=== PATIENT | male | born 1985 | race Caucasian/White ===

== ENCOUNTER 2018-03-31 13:42 | Emergency (ER) | payer MEDICAID ==
[~2018-03-31] VITALS: Ht 188 cm; Wt 90.0 kg
[2018-03-31 13:55] VITALS: BP 139/73
[2018-03-31] MEDS ORDERED: CEPH500C5 PO (14:16)
== END 2018-03-31 14:51 | disposition home or self-care (01) ==
LOC: ER 13:42
DX: L03.114 Cellulitis of left upper limb (principal); F12.90 Cannabis use, unspecified, uncomplicated; F15.90 Other stimulant use, unspecified, uncomplicated; F17.200 Nicotine dependence, unspecified, uncomplicated
CPT/HCPCS: 73120; 99284

== ENCOUNTER 2018-04-03 16:15 | Emergency (ER) | payer MEDICAID ==
[~2018-04-03] VITALS: Ht 188 cm; Wt 88.3 kg
[~2018-04-03 16:15] MED LIST: CEPH500C5 PO
[2018-04-03 16:25] VITALS: BP 137/82
[2018-04-03] MEDS ORDERED: ONDA4TAB6 PO (17:22)
[2018-04-03] MEDS ORDERED: HYDR-3686 PO (17:22)
[2018-04-03] MEDS ORDERED: NICO-687 TD (17:36)
[2018-04-03] MEDS ORDERED: mupirocin 2% ointment 22GM TP STA (17:38)
== END 2018-04-03 17:54 | disposition home or self-care (01) ==
LOC: ER 16:15
DX: F19.10 Other psychoactive substance abuse, uncomplicated (principal); F12.90 Cannabis use, unspecified, uncomplicated; F15.90 Other stimulant use, unspecified, uncomplicated; Z79.899 Other long term (current) drug therapy
CPT/HCPCS: 99283

== ENCOUNTER 2018-04-11 14:04 | Emergency (ER) | payer MEDICAID ==
[~2018-04-11] VITALS: Ht 188 cm; Wt 90.4 kg
[~2018-04-11 14:04] MED LIST changes: +HYDR-3686 PO; +NICO-687 TD; +ONDA4TAB6 PO
[2018-04-11 14:12] VITALS: BP 120/68
--- NOTE | 2018-04-11 14:50 | NUR ---
PT STATES DRANK BEER TODAY, LAST HEROIN 2 DAYS AGO, LAST METH TODAY
[2018-04-11] MEDS ORDERED: TAM75C PO (14:53)
[2018-04-11] MEDS ORDERED: AZIT-63 PO (14:53)
[2018-04-11] MEDS ORDERED: ONDA4TAB12 PO (14:53)
== END 2018-04-11 15:03 | disposition home or self-care (01) ==
LOC: ER 14:05
DX: J40 Bronchitis, not specified as acute or chronic (principal); F12.90 Cannabis use, unspecified, uncomplicated; F15.90 Other stimulant use, unspecified, uncomplicated; F11.90 Opioid use, unspecified, uncomplicated; Z79.2 Long term (current) use of antibiotics; Z79.899 Other long term (current) drug therapy
CPT/HCPCS: 99283

== ENCOUNTER 2018-04-23 20:37 | Emergency (ER) | payer MEDICAID ==
[~2018-04-23] VITALS: Ht 180.3 cm; Wt 122.7 kg
[~2018-04-23 20:37] MED LIST changes: +AZIT-63 PO; -HYDR-3686 PO; -NICO-687 TD; +ONDA4TAB12 PO; +PANT-47 PO
[2018-04-23] MEDS ORDERED: bacitracin 15gm ointment TP ONE (21:30)
[2018-04-23] MEDS ORDERED: ondansetron 4mg rapidly disintigrating tab PO ONE (21:30)
[2018-04-23] MEDS ORDERED: amox tr/potassium clavulanate 875/125mg TAB PO ONE (21:30)
[2018-04-23] MEDS ORDERED: TETanus/Pertussis (Acell)/Diphther VAC/PF (Tdap-Adult) 0.5ml syringe IM ONE (21:30)
--- NOTE | 2018-04-23 22:19 | NUR ---
PATIENT IN [facility], HERE FOR MEDICAL CLEARANCE POST DOG BITE TO RIGHT LOWER ANTERIOR LEX2 CM IRRIGATED WITH 1 L NS AND BETADINE. SUTURING NOW: DR WALTERS PATIENT ADMITS TO SMOKING METH AND [place] JOHNSON
[2018-04-23] MEDS ORDERED: acetaminophen 325mg tablet PO ONE (22:40)
[2018-04-23] MEDS ORDERED: AMOX-580 PO (22:47)
[2018-04-23 23:25] VITALS: BP 137/79
== END 2018-04-23 23:48 ==
LOC: ER 20:40
DX: S81.811A Laceration without foreign body, right lower leg, initial encounter (principal); F12.90 Cannabis use, unspecified, uncomplicated; F15.90 Other stimulant use, unspecified, uncomplicated; F11.90 Opioid use, unspecified, uncomplicated; W54.0XXA Bitten by dog, initial encounter; Y93.89 Activity, other specified; Y92.89 Other specified places as the place of occurrence of the external cause; Y99.8 Other external cause status
CPT/HCPCS: 12002; 73590; 90471; 90715; 99284

== ENCOUNTER 2019-06-02 21:26 | Emergency (ER) | payer MEDICAID ==
[~2019-06-02] VITALS: Ht 188 cm; Wt 90.9 kg
[~2019-06-02 21:26] MED LIST changes: -AZIT-63 PO; -CEPH500C5 PO
[2019-06-02 21:38] VITALS: BP 136/85
[2019-06-03] MEDS ORDERED: GUAI1TBM19 PO (00:04)
[2019-06-03] MEDS ORDERED: METH4TAB3 PO (00:04)
[2019-06-03] MEDS ORDERED: AMOX-115 PO (00:04)
== END 2019-06-03 00:14 | disposition home or self-care (01) ==
LOC: ER 21:26
DX: J32.9 Chronic sinusitis, unspecified (principal); F12.90 Cannabis use, unspecified, uncomplicated; F15.90 Other stimulant use, unspecified, uncomplicated; F11.90 Opioid use, unspecified, uncomplicated; Z72.89 Other problems related to lifestyle; Z79.899 Other long term (current) drug therapy
CPT/HCPCS: 99283

== ENCOUNTER 2024-08-06 13:20 | Inpatient (IN) | payer MEDICAID ==
[~2024-08-06] VITALS: Ht 188 cm; Wt 97.7 kg
[~2024-08-06 13:20] MED LIST changes: +GUAI1TBM19 PO; +METH4TAB3 PO; +ONDA-243 PO; -ONDA4TAB12 PO
[2024-08-06 14:27] LABS: BASOPHILS % (AUTO) 0.3 % (0-1); EOSINOPHILS # (AUTO) 0.3 X10'3 (0-0.9); HEMATOCRIT 37.3 % (42.0-52.0); HEMOGLOBIN 12.5 g/dl (14.0-17.9); LYMPHOCYTES # (AUTO) 1.1 X10'3 (1.1-4.8); LYMPHOCYTES % (AUTO) 8.7 % (21-51); MEAN CORPUSCULAR HGB CONC 33.7 g/dL (33.0-36.5); MEAN CORPUSCULAR VOLUME 86.1 FL (78-98); MEAN PLATELET VOLUME 8.6 FL (7.4-10.4); MONOCYTES # (AUTO) 1.2 X10'3 (0-0.9); MONOCYTES % (AUTO) 9.7 % (2-12); NEUTROPHILS % (AUTO) 79.3 % (42-75); PLATELET COUNT 251 X10'3 (140-440); RED BLOOD COUNT 4.33 X10'6 (4.70-6.10); RED CELL DISTRIBUTION WIDTH 12.8 % (11.5-14.5); WHITE BLOOD COUNT 12.6 X10'3 (4.5-11.0)
[2024-08-06 14:33] LABS: ALBUMIN 2.9 G/DL (3.4-5.0); ANION GAP 7 (8-16); BLOOD UREA NITROGEN 15 MG/DL (7-18); BUN/CREATININE RATIO 16.3 (10.0-20.0); CHLORIDE 97 MMOL/L (99-107); CREATININE 0.92 MG/DL (0.60-1.10); GLUCOSE 83 MG/DL (70-104); SODIUM 132 MMOL/L (135-145); TOTAL CARBON DIOXIDE 28.4 MMOL/L (24-32); eCRCL 127 ML/MIN; eGFR > 90 ML/MIN
[2024-08-06] MEDS ORDERED: VANCOMYCIN 1,500MG inj. 1,500 MG in normal saline 500ml IV soln 300 ML IV STA (17:56)
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
[2024-08-06] MEDS: TETanus/Pertussis (Acell)/Diphther VAC/PF (Tdap-Adult) 0.5ml syringe IMVAC ONE (18:44)
[2024-08-06] MEDS: ciprofloxacin 250mg tablet PO STA (18:44)
[2024-08-06] MEDS: VANCOMYCIN/WATER FOR INJ (PEG) 1.5GM/300 ML IVPB IV ONE (18:45)
[2024-08-06] MEDS: fentaNYL/PF 50MCG/1 ML 2ML syringe IV ONE (18:45)
--- NOTE | 2024-08-06 19:09 | RADIOLOGY REPORT ---
CLINICAL INDICATION: Infection TECHNIQUE: 3 radiographic views of the left hand were obtained. Comparison: None FINDINGS/IMPRESSION: There is acute comminuted [id number]-[id number] displaced fracture through the base of the 1st digit dis woody phalanx with a irregular bony margins. There is additional acute minimally displaced fracture through the radial head of the 1st metacarpal. There is associated significant soft tissue edema of the hand and possible overlying wound over the distal 1st digit.
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
[2024-08-06] MEDS ORDERED: morphine 2 MG/ML inj. syringe IV PRN (21:00)
[2024-08-06] MEDS ORDERED: magnesium Cl slow-release 64mg tablet PO PRN (21:00)
[2024-08-06] MEDS ORDERED: mag hydrox/Alum hydrox/simeth 30ml oral suspension PO PRN (21:00)
[2024-08-06] MEDS ORDERED: acetaminophen 325mg tablet PO PRN (21:00)
[2024-08-06] MEDS ORDERED: potassium Cl 40MEQ/1/2NS 520ml 520 ML IV PRN (21:00)
[2024-08-06] MEDS ORDERED: magnesium sulf-water 2g/50mL 50 ML IV PRN (21:00)
[2024-08-06] MEDS ORDERED: ondansetron/PF 4mg/2ml inj IV PRN (21:00)
[2024-08-06] MEDS: normal saline 1000ml 1,000 ML IV SCH (21:00)
[2024-08-06] MEDS ORDERED: magnesium sulf-water 4G/100mL 100 ML IV PRN (21:00)
[2024-08-06] MEDS ORDERED: potassium Cl 20 mEq SR tablet PO PRN ×2 (21:00)
[2024-08-06] MEDS ORDERED: NO HOME MEDS (21:23)
[2024-08-06 21:45] VITALS: BP 151/80; PULSE 94; RESP 22; TEMP 99.3; O2SAT 100
[2024-08-06] MEDS: morphine 2 MG/ML inj. syringe IV PRN (22:36)
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
[2024-08-06] MEDS: cefepime 2g/NS 100ml ADVANTAGE 100 ML IV SCH (23:15)
[2024-08-06] MEDS: vancomycin/NS 1 GM ADD-VANTAGE 250 ML IV SCH (23:43)
[2024-08-07] VITALS (23 sets, daily range): BP systolic 133–159; BP diastolic 74–106; PULSE 71–91; RESP 12–20; TEMP 98.1–98.2; O2SAT 98–100
[2024-08-07] MEDS: HYDROmorphone 1 mg/ml syringe IV SCH ×2 (00:27→18:24)
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
[2024-08-07] MEDS: heparin, porcine 5000 units/ml vial SQ SCH (03:59)
[2024-08-07] MEDS: clindamycin 300mg/D5W 50mL 50 ML IV SCH (04:14)
--- NOTE | 2024-08-07 06:33 | RADIOLOGY REPORT ---
INDICATION: left hand cellulitis COMPARISON: None TECHNIQUE: CT of the left upper extremity was performed without contrast. Volume transverse images we re obtained and reconstructed in multiple planes using bone and soft tissue algorithms. CONTRAST: None Radiation Dose Information: CTDI volume is 20 mGy. Dose-length product is 632 mGy*cm FINDINGS/IMPRESSION: The imaged portions of the body are normal. The alignment is normal. The joint spaces are normal. There is no fracture, dislocation. Diffuse soft-tissue swelling and edema of the hand; possibly cellulitis. Soft-tissue swelling is most advanced at the distal 1st digit. There is small foci of gas in the distal 1st digit possibly repres enting subcutaneous emphysema or ulceration. Bony erosive changes are present involving the distal phalanx of the 1st digit which is suspicious fo r osteomyelitis.
[2024-08-07 06:38] LABS: BASOPHILS # (AUTO) 0.1 X10'3 (0-0.2); BASOPHILS % (AUTO) 0.9 % (0-1); EOSINOPHILS # (AUTO) 0.3 X10'3 (0-0.9); EOSINOPHILS % (AUTO) 2.8 % (0-6); HEMOGLOBIN 12.8 g/dl (14.0-17.9); LYMPHOCYTES # (AUTO) 1.4 X10'3 (1.1-4.8); LYMPHOCYTES % (AUTO) 11.4 % (21-51); MEAN CORPUSCULAR HEMOGLOBIN 28.9 PG (27.0-31.0); MEAN CORPUSCULAR HGB CONC 33.8 g/dL (33.0-36.5); MEAN CORPUSCULAR VOLUME 85.4 FL (78-98); MEAN PLATELET VOLUME 8.6 FL (7.4-10.4); MONOCYTES # (AUTO) 0.9 X10'3 (0-0.9); MONOCYTES % (AUTO) 7.5 % (2-12); NEUTROPHILS # (AUTO) 9.4 X10'3 (1.8-7.7); NEUTROPHILS % (AUTO) 77.4 % (42-75); PLATELET COUNT 250 X10'3 (140-440); RED BLOOD COUNT 4.44 X10'6 (4.70-6.10); RED CELL DISTRIBUTION WIDTH 12.7 % (11.5-14.5); WHITE BLOOD COUNT 12.2 X10'3 (4.5-11.0)
[2024-08-07 06:56] LABS: ALANINE AMINOTRANSFERASE 16 U/L (12-78); ALBUMIN 2.7 G/DL (3.4-5.0); ALBUMIN/GLOBULIN RATIO 0.6 (1.1-1.5); ALKALINE PHOSPHATASE 94 IU/L (46-116); ANION GAP 5 (8-16); ASPARTATE AMINO TRANSFERASE 16 U/L (10-37); BILIRUBIN,TOTAL 0.4 MG/DL (0.1-1.0); BLOOD UREA NITROGEN 9 MG/DL (7-18); BUN/CREATININE RATIO 11.1 (10.0-20.0); CALCIUM 8.8 MG/DL (8.5-10.1); CHLORIDE 101 MMOL/L (99-107); CREATININE 0.81 MG/DL (0.60-1.10); GLUCOSE 112 MG/DL (70-104); MAGNESIUM 1.8 MG/DL (1.5-2.4); POTASSIUM 4.1 MMOL/L (3.5-5.1); SODIUM 134 MMOL/L (135-145); TOTAL CARBON DIOXIDE 27.8 MMOL/L (24-32); TOTAL PROTEIN 7.3 G/DL (6.4-8.2); eCRCL 144 ML/MIN; eGFR > 90 ML/MIN
[2024-08-07] MEDS ORDERED: fentaNYL/PF 50MCG/1 ML 2ML syringe IV PRN (07:35)
[2024-08-07] MEDS ORDERED: labetalol 20mg/4ml (5mg/ml) syringe IV PRN (07:35)
[2024-08-07] MEDS ORDERED: morphine 2 MG/ML inj. syringe IV PRN (07:35)
[2024-08-07] MEDS: ringers solution, lacted 1,000 ML IV SCH (07:35)
[2024-08-07] MEDS ORDERED: hydrALAZINE 20mg/ml inj. IV PRN (07:35)
[2024-08-07] MEDS ORDERED: ondansetron/PF 4mg/2ml inj IV PRN (07:35)
[2024-08-07] MEDS ORDERED: morphine 4 MG/ML inj SYRINge IV PRN (07:35)
[2024-08-07] MEDS ORDERED: fentaNYL /PF 50mcg/ml 5ml ampule ONE (07:47)
[2024-08-07] MEDS ORDERED: ondansetron/PF 4mg/2ml inj ONE (07:48)
[2024-08-07] MEDS ORDERED: dexamethasone sod phosphate 4mg/ml inj. ONE (07:48)
[2024-08-07] MEDS ORDERED: MIDAZolam 1 MG/ML 5ML VIAL ONE (07:48)
[2024-08-07] MEDS ORDERED: LIDOcaine 2% (20mg/ml) 5ml vial ONE (07:48)
[2024-08-07] MEDS ORDERED: propofol inj 20 ML IV ONE (07:48)
[2024-08-07] MEDS ORDERED: BUPIVAcaine 2.5mg/ml inj 50ml vial (contains preservative) ONE (07:50)
[2024-08-07] MEDS: K and/or MAG REPLACEMENT MC SCH (08:00)
[2024-08-07] MEDS: CEFEPIME 2gm in D5W 50mL 50 ML IV SCH (08:00)
[2024-08-07] MEDS: docusate sod 100mg capsule PO SCH (08:00)
[2024-08-07] MEDS ORDERED: sevoflurane 250ml liquid IH ONE (08:12)
[2024-08-07] MEDS ORDERED: HYDROmorphone 1 mg/ml syringe ONE ×2 (08:34)
[2024-08-07] MEDS ORDERED: ketamine 50mg/5ml syringe ONE (08:46)
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
[2024-08-07] MEDS: fentaNYL/PF 50MCG/1 ML 2ML syringe IV PRN (09:50)
[2024-08-07] MEDS: oxyCODONE/APAP 10/325mg tablet PO PRN (09:57)
[2024-08-07] MEDS: HYDROmorphone/PF 0.2 MG/ML SYRINGE IV PRN (10:25)
--- NOTE | 2024-08-07 10:28 | VASCULAR REPORT ---
CLINICAL HISTORY: Left hand swelling/pain. TECHNIQUE: Left upper extremity arterial duplex exam was performed. Grayscale, color Doppler, and spe ctral waveform analysis was performed. COMPARISON: None FINDINGS: Left upper Extremity: Multiphasic waveforms are seen throughout the left upper extremity. The subclav duane, axillary, brachial, radial, and ulnar arteries are patent. LEFT PSV (cm/sec) Prox Subclavian 198 Mid Subclavian 143 Dist Subclavian 152 Axillary 167 Prox Brachial 149 Mid Brachial 158 Dist Brachial 149 Ulnar 108 Radial 148 IMPRESSION: 1. No evidence of arterial occlusion or focal stenosis. 2. Normal multiphasic waveforms throughout the left upper extremity
--- NOTE | 2024-08-07 10:54 | PROGRESS NOTE ---
Daily Progress Note Providers to CC Bilateral hands pain swelling inflammation ~ Central Line/PICC still needed: No Werner-Non Protocol Werner Indications Met/Not Met: F/C Indications Not Met Antibiotic Timeout Antibiotic Ordered?: Yes MRSA Education MRSA Education Provided to pt: Yes Subjective As above Objective Vital Signs Date Time Temp Pulse Resp B/P (MAP) Pulse Ox O2 Delivery O2 Flow Rate FiO2 08/07/24 10:52 15 08/07/24 10:30 73 150/98 (115) 100 Room Air 0.0 08/07/24 09:19 98.4 Vital signs, stable ,afebrile. Pulse Oximetry reflects adequate oxygenation. BMI is 27 weight 97 kg General: well developed, well nourished. Awake , alert, and oriented x4, resting comfortably in the bed, in no acute distress . Skin: Warm, dry, no pallor, no rash or petechiae. HEENT: Atraumatic, normocephalic, EOMI, anicteric sclera B; pink conjunctiva; PERRLA, normal oropharynx, moist oral and nasal mucosa. Tympanic membrane , nose , throat clear. Neck: Trachea midline. Supple, full range of motion, no JVD, bruit , hepatojugular reflex , lymphadenopathy or masses, or other lesions Cardiac: Regular rhythm, regular rate no murmurs, rubs, or gallops. Normal S1 and S2, no S3 noticed. PMI is normal. Respiratory: Equal breath sounds bilaterally, no tachypnea; lungs clear to auscultation bilaterally, no wheezing ,rub or rales, or crackles. Chest wall is symmetric and without deformity. No signs of trauma. Chest wall is nontender. No signs of respiratory distress. Resonance is normal upon percussion bilaterally. Gastrointestinal: Abdomen symmetric, non-distended, soft, non-tender, normal bowel sounds x4 quadrant, normoactive, no hepatosplenomegaly , no masses , no bruit, no flank pain bilaterally. No voluntary guarding, rebound, or rigidity. No tenderness to percussion. No pulsatile masses. Equal femoral pulses. No Castaneda's sign or McBurney point tenderness. Back; no CVA tenderness bilaterally, no deformities. Neck and back are without deformity as well. No tenderness noted on palpation of the spinous processes. Spinous processes are midline. Cervical, thoracic, and lumbar paraspinal muscles are not tender and are without spasm. : normal external genitalia, without lesions, swelling, masses or tenderness. Musculoskeletal: Extremities, normal range of motion, non-tender, muscle strength 5/5 x 4. Negative Homans signs bilaterally on lower extremity. Distal pulses full symmetrical, no clubbing, cyanosis , edema. Bilateral hands dressing clean dry intact neurological - intact Neurological: Speech is clear, alert, and oriented x 4. No motor or sensory deficit, deep tendon reflexes normal, cerebellar intact. Cranial nerves II-XII intact. Psych: Alert and or appropriate, normal affect. Vascular: Good distal pulses, which are equal x4; capillary refill less than 2 seconds. Lymphatic, no lymphadenopathy. Result Diagram: 08/07/2416 08/07/2416 Problem\Assessment\Plan Assessment/Plan Patient is a 33-year-old male with no significant medical history who came to the ED due to left hand pain. Admitted for management of left hand cellulitis with possible septic arthritis. Bilaterally hands cellulitis Possible septic arthritis of left 1st interphalangeal and metacarpophalangeal joints Comminuted displaced fracture of base of 1st digit distal phalanx Minimally displaced fracture through the radial head of the 1st metacarpal Patient denies trauma to left hand, but does report burning it 10 days ago There is significant pain of left hand with significantly decreased range of motion WBC 12, procalcitonin is unremarkable Left hand x-ray shows acute comminuted [id number] displaced fracture through the base of the 1st digit distal phalanx with a irregular bony margins. There is additional acute minimally displaced fracture through the radial head of the 1st metacarpal Started on vancomycin and cefepime Pain control with Dilaudid Dr. Borden was consulted, patient awaiting to go to OR today Discussed case with Dr. Padgett who recommended adding clindamycin for anaerobic coverage Code Status: Full code Nutrition: Regular diet, NPO after midnight PT: Ordered Prognosis: Guarded Sepsis Screening Reassessment Date: August 07, 2024 Date of Service: August 07, 2024 Billing Provider: ALEX WILSON MD Common Visit Codes: [id number] INP/OBS CARE(HIGH) ALEX WILSON MD August 07, 2024 10:54
[2024-08-07] MEDS: ketorolac trometh 30MG/ML vial 30 MG/ML VIAL IV ONE (10:58)
[2024-08-07] MEDS: magnesium hydroxide 30ml (MOM) UD suspension PO PRN (12:30)
[2024-08-07] MEDS: diazepam 5mg tablet PO ONE (20:05)
[2024-08-07] MEDS: morphine 4 MG/ML inj SYRINge IV PRN (21:05)
[2024-08-07] MEDS: VANCOMYCIN LEVEL IV ONE (22:53)
[2024-08-08 02:07] VITALS: BP 145/83; PULSE 79; RESP 20; TEMP 98.1; O2SAT 100
[2024-08-08] MEDS: morphine 4 MG/ML inj SYRINge IV ONE (04:45)
[2024-08-08 06:00] VITALS: BP 170/99; PULSE 87; RESP 22; TEMP 97.9; O2SAT 99
[2024-08-08 08:00] VITALS: RESP 22; O2SAT 99
--- NOTE | 2024-08-08 12:20 | PROGRESS NOTE ---
Progress Note Ortho Ortho Post Op Day #: 1 Follow Up ROS ROS No new complaints Exam Exam: Alert and Oreinted x4, Dressing clean and dry Problem/Assessment/Plan Problems/Diagnosis: (1) Cellulitis of left thumb (2) Cellulitis of right ring finger Additional Plan continue abx, wound check dressing change tomorrow Results/Orders Result Diagram: 08/07/24 0616 08/07/24 0616 CHRISTOPHER COPPOLA Jr., MD August 08, 2024 12:19
[2024-08-08] MEDS: nicotine 21mg patch - 24 hr TD SCH (12:48)
--- NOTE | 2024-08-08 14:06 | PROGRESS NOTE ---
Daily Progress Note Providers to CC No new complaint today, pain well controlled, patient is a heavy smoker, consulted to stop smoking patient agrees started to nicotine patch ~ Central Line/PICC still needed: No Werner-Non Protocol Werner Indications Met/Not Met: F/C Indications Not Met Antibiotic Timeout Antibiotic Ordered?: Yes MRSA Education MRSA Education Provided to pt: Yes Subjective As above Objective Vital Signs Date Time Temp Pulse Resp B/P (MAP) Pulse Ox O2 Delivery O2 Flow Rate FiO2 08/08/24 06:22 16 08/08/24 06:00 97.9 87 170/99 (122) 99 Room Air 08/07/24 11:00 0.0 Vital signs, stable ,afebrile. Pulse Oximetry reflects adequate oxygenation. BMI is General: well developed, well nourished. Awake , alert, and oriented x4, resting comfortably in the bed, in no acute distress . Skin: Warm, dry, no pallor, no rash or petechiae. HEENT: Atraumatic, normocephalic, EOMI, anicteric sclera B; pink conjunctiva; PERRLA, normal oropharynx, moist oral and nasal mucosa. Tympanic membrane , nose , throat clear. Neck: Trachea midline. Supple, full range of motion, no JVD, bruit , hepatojugular reflex , lymphadenopathy or masses, or other lesions Cardiac: Regular rhythm, regular rate no murmurs, rubs, or gallops. Normal S1 and S2, no S3 noticed. PMI is normal. Respiratory: Equal breath sounds bilaterally, no tachypnea; lungs clear to auscultation bilaterally, no wheezing ,rub or rales, or crackles. Chest wall is symmetric and without deformity. No signs of trauma. Chest wall is nontender. No signs of respiratory distress. Resonance is normal upon percussion bilaterally. Gastrointestinal: Abdomen symmetric, non-distended, soft, non-tender, normal bowel sounds x4 quadrant, normoactive, no hepatosplenomegaly , no masses , no bruit, no flank pain bilaterally. No voluntary guarding, rebound, or rigidity. No tenderness to percussion. No pulsatile masses. Equal femoral pulses. No Castaneda's sign or McBurney point tenderness. Back; no CVA tenderness bilaterally, no deformities. Neck and back are without deformity as well. No tenderness noted on palpation of the spinous processes. Spinous processes are midline. Cervical, thoracic, and lumbar paraspinal muscles are not tender and are without spasm. : normal external genitalia, without lesions, swelling, masses or tenderness. Musculoskeletal: Extremities, normal range of motion, non-tender, muscle strength 5/5 x 4. Negative Homans signs bilaterally on lower extremity. Distal pulses full symmetrical, no clubbing, cyanosis , edema. Dressing clean dry intact on bilateral hands, neurovascular grossly intact Neurological: Speech is clear, alert, and oriented x 4. No motor or sensory deficit, deep tendon reflexes normal, cerebellar intact. Cranial nerves II-XII intact. Psych: Alert and or appropriate, normal affect. Vascular: Good distal pulses, which are equal x4; capillary refill less than 2 seconds. Lymphatic, no lymphadenopathy. Result Diagram: 08/07/2461508/07/24615 Problem\Assessment\Plan Assessment/Plan Patient is a 33-year-old male with no significant medical history who came to the ED due to left hand pain. Admitted for management of left hand cellulitis with possible septic arthritis. Post bilateral hand surgery, done by orthopedic doctor, postoperative day 1., good recovery Bilaterally hands cellulitis Possible septic arthritis of left 1st interphalangeal and metacarpophalangeal joints Comminuted displaced fracture of base of 1st digit distal phalanx Minimally displaced fracture through the radial head of the 1st metacarpal Patient denies trauma to left hand, but does report burning it 10 days ago There is significant pain of left hand with significantly decreased range of motion WBC 12, procalcitonin is unremarkable Left hand x-ray shows acute comminuted [id number] displaced fracture through the base of the 1st digit distal phalanx with a irregular bony margins. There is additional acute minimally displaced fracture through the radial head of the 1st metacarpal Started on vancomycin and cefepime Pain control with Dilaudid Dr. Borden is managing ortho conditions Discussed case with Dr. Padgett who recommended adding clindamycin for anaerobic coverage Code Status: Full code Nutrition: Regular diet, PT: Ordered Prognosis: Guarded Sepsis Screening Reassessment Date: August 08, 2024 Date of Service: August 08, 2024 Billing Provider: ALEX WILSON MD Common Visit Codes: [id number] INP/OBS CARE(HIGH) ALEX WILSON MD August 08, 2024 14:06
[2024-08-08 18:00] VITALS: BP 132/72; PULSE 75; RESP 17; TEMP 97.3; O2SAT 100
[2024-08-08 20:00] VITALS: RESP 17; O2SAT 100
[2024-08-08 22:00] VITALS: BP 129/74; PULSE 80; RESP 16; TEMP 98.4; O2SAT 100
[2024-08-08] MEDS: VANCOmycin 1250MG/NS 250ml Bag 250 ML IV SCH (23:41)
[2024-08-09] MEDS: diazepam inj 5 MG/ML inj. IV ONE ×2 (00:40→00:44)
[2024-08-09 08:00] VITALS: RESP 20
[2024-08-09] MEDS: diazepam inj 5 MG/ML inj. IV PRN (10:19)
[2024-08-09 11:06] VITALS: BP 143/84; PULSE 66; RESP 18; TEMP 98.1; O2SAT 100
[2024-08-09] MEDS: HYDROmorphone 1 mg/ml syringe IV SCH (11:52)
[2024-08-09 12:52] VITALS: RESP 18
[2024-08-09] MEDS ORDERED: HYDR-3965 PO (15:51)
[2024-08-09] MEDS ORDERED: DICL25TA12 PO (15:51)
[2024-08-09] MEDS ORDERED: CEFD300C3 PO (15:51)
--- NOTE | 2024-08-09 20:04 | DISCHARGE SUMMARY ---
Discharge Summary Providers to No new complaint today, asking to be discharged home ~ Discharge Summary Assessment Bilateral hand cellulitis Right ring finger suppurative tenosynovitis Left hand 1st finger comminuted fracture, associated with septic arthritis and distal phalangeal osteomyelitis and abscess History of fentanyl abuse Status post bilateral hands surgery Admission Diagnosis: bilateral hand infection Admission Diagnosis Comment: Bilateral hand cellulitis Right ring finger suppurative tenosynovitis Left hand 1st finger comminuted fracture, associated with septic arthritis and distal phalangeal osteomyelitis and abscess History of fentanyl abuse Status post bilateral hands surgery Hospital Course DATE OF ADMISSION: August 06, 2024 DATE OF DISCHARGE: August 09, 2024 Discharge Diagnosis\Comment: Bilateral hand cellulitis Right ring finger suppurative tenosynovitis Left hand 1st finger comminuted fracture, associated with septic arthritis and distal phalangeal osteomyelitis and abscess History of fentanyl abuse Status post bilateral hands surgery Operations\Procedures: Bilateral hand surgery secondary to bilateral hands infection Consultants: Dr. Borden, orthopedic doctor Complications: None Condition on DC: Stable Discharge Summary: 39 y/o male right-hand dominant presents to the emergency department for evaluation of coughlin to his left upper extremity and right upper extremity. Reports 10 days ago he was using a mohan lantern when he touched the glass and burnt his left thumb and 4th digit on his right hand. Since that time he has had increasing circumferential swelling & pain, erythema that has now spread up the left upper extremity. Patient has fentanyl abuse history. Reports he uses every day and has been doing so for the last month and a half. Otherwise vapes denies other medical history or surgeries. After admission patient was extensively evaluated and treated including bilateral hand surgery, after surgery his condition improved today he has no complaint asking to be discharged home, he will be discharged in stable condition, Dr. Borden cleared for discharge, medication reconciled, follow-up PCP and Dr. Borden in the morning, return to emergency department if condition worsens, today on physical exam, Vital signs, stable ,afebrile. Pulse Oximetry reflects adequate oxygenation. General: well developed, well nourished. Awake , alert, and oriented x4, resting comfortably in the bed, in no acute distress . Skin: Warm, dry, no pallor, no rash or petechiae. HEENT: Atraumatic, normocephalic, EOMI, anicteric sclera B; pink conjunctiva; PERRLA, normal oropharynx, moist oral and nasal mucosa. Tympanic membrane , nose , throat clear. Neck: Trachea midline. Supple, full range of motion, no JVD, bruit , hepatojugular reflex , lymphadenopathy or masses, or other lesions Cardiac: Regular rhythm, regular rate no murmurs, rubs, or gallops. Normal S1 and S2, no S3 noticed. PMI is normal. Respiratory: Equal breath sounds bilaterally, no tachypnea; lungs clear to auscultation bilaterally, no wheezing ,rub or rales, or crackles. Chest wall is symmetric and without deformity. No signs of trauma. Chest wall is nontender. No signs of respiratory distress. Resonance is normal upon percussion bilaterally. Gastrointestinal: Abdomen symmetric, non-distended, soft, non-tender, normal bowel sounds x4 quadrant, normoactive, no hepatosplenomegaly , no masses , no bruit, no flank pain bilaterally. No voluntary guarding, rebound, or rigidity. No tenderness to percussion. No pulsatile masses. Equal femoral pulses. No Castaneda's sign or McBurney point tenderness. Back; no CVA tenderness bilaterally, no deformities. Neck and back are without deformity as well. No tenderness noted on palpation of the spinous processes. Spinous processes are midline. Cervical, thoracic, and lumbar paraspinal muscles are not tender and are without spasm. : normal external genitalia, without lesions, swelling, masses or tenderness. Musculoskeletal: Extremities, normal range of motion, non-tender, muscle strength 5/5 x 4. Negative Homans signs bilaterally on lower extremity. Distal pulses full symmetrical, no clubbing, cyanosis , edema. Dressing on bilateral hands clean dry intact, neurovascular grossly intact Neurological: Speech is clear, alert, and oriented x 4. No motor or sensory deficit, deep tendon reflexes normal, cerebellar intact. Cranial nerves II-XII intact. Psych: Alert and or appropriate, normal affect. Vascular: Good distal pulses, which are equal x4; capillary refill less than 2 seconds. Lymphatic, no lymphadenopathy. *Problems/Diagnosis: (1) Cellulitis of left thumb Status: Acute (2) Cellulitis of right ring finger Status: Acute Total Time Spent on D/C: > 30 Minutes Date of Service: August 09, 2024 Billing Provider: ALEX WILSON MD Common Visit Codes: 44004-FYU/OBS DISCH DAY >30min ALEX WILSON MD August 09, 2024 20:04
[2024-08-09] MEDS ORDERED: VANCOMYCIN LEVEL IV ONE (22:30)
--- NOTE | 2024-08-11 18:55 | PATHOLOGY REPORT ---
[facility] [address] [place] [address] SURGICAL PATHOLOGY REPORT CaseNumber: [id number] Surgeon:Davrin Borden M.D. CLINICAL INFORMATION CLINICAL INFORMATION: Not provided. DIAGNOSIS DIAGNOSIS: THUMB, LEFT; INCISION AND DRAINAGE - PENETRATING ULCER WITH ASSOCIATED HYPODERMAL ABSCESS. - ACUTE AND CHRONIC OSTEOMYELITIS. MICROSCOPIC DESCRIPTION MICROSCOPIC DESCRIPTION: Two slides of the left thumb incisional & drainage specimen is reviewed. Pre sent as identified grossly, is a deep penetrating ulcer which destroys the overlying epidermis, exten ds through the superficial and deep dermis and into the hypodermis. Within the hypodermis are sheets of necrotic fibroadipose tissue and large collections of neutrophil s consistent with abscess. There are fragments of devitalized bone within the deep tissues. These tis kenny fragments are surrounded by acute and chronic inflammatory debris, findings consistent with acute and chronic osteomyelitis. There are no features of malignancy. (st) GROSS DESCRIPTION GROSS DESCRIPTION: Received in a container of formalin labeled with the patient's name, number, and " Left thumb" is a 4 cm aggregate of irregularly shaped pieces of bone. There are areas of ulceration i dentified. A discrete mass lesion is not identified. Bone Char Operator sections are submitted as A1-A2. The time at which the specimen was removed was 0840. The time at which the specimen was placed in for mill spring was 0900. Electronically signed by: Cliff Tovar M.D. 08/11/2024 6:22:00 PM
== END 2024-08-09 17:48 | disposition home or self-care (01) | DRG 316 ==
LOC: ER 13:21 → ED HOLD 21:04 → ORTHO 4S 21:45 → SUR 3N 08-08 23:01
PROVIDERS: ADMIT Internal Medicine Critical Care Medicine; ATTEND Family Medicine
PROC: 3E0334Z Introduction of Serum, Toxoid and Vaccine into Peripheral Vein, Percutaneous Approach (ICD-10-PCS; 2024-08-06)
PROC: 0X6M0Z1 Detachment at Left Thumb, High, Open Approach (ICD-10-PCS; 2024-08-07)
PROC: 0JBJ0ZZ Excision of Right Hand Subcutaneous Tissue and Fascia, Open Approach (ICD-10-PCS; principal; 2024-08-07 08:12)
DX: M65.141 Other infective (teno)synovitis, right hand (principal); M00.9 Pyogenic arthritis, unspecified; M86.8X4 Other osteomyelitis, hand; L02.512 Cutaneous abscess of left hand; L03.011 Cellulitis of right finger; T23.212A Burn of second degree of left thumb (nail), initial encounter; L03.012 Cellulitis of left finger; T23.221A Burn of second degree of single right finger (nail) except thumb, initial encounter; S62.522A Displaced fracture of distal phalanx of left thumb, initial encounter for closed fracture; L03.114 Cellulitis of left upper limb; X08.8XXA Exposure to other specified smoke, fire and flames, initial encounter; Y93.89 Activity, other specified; Y92.89 Other specified places as the place of occurrence of the external cause; Y99.8 Other external cause status; Z23 Encounter for immunization
CPT/HCPCS: 36415; 73130; 73200; 76881; 80048; 80053; 80202; 82948; 83605; 83735; 84145; 85025; 85651; 87040; 87070; 87075; 87077; 87081; 87186; 90471; 90715; 93931; 96365; 96367; 96375; 99285; A4618; A4649; A6222; A6223; A6446; A6449; A6590; A7000; G0378; J0692; J1100; J1171; J1644; J1885; J2003; J2250; J2270; J2405; J2704; J3010; J3360; J3370; J3372; J3490; J7030; J7120